=== PATIENT | male | born 1955 | race Caucasian/White ===

== ENCOUNTER 2021-02-24 14:03 | Outpatient (CLI) | payer OTHER | END 2021-02-24 14:04 | disposition home or self-care (01) | LOC: CSHULT 14:03 | PROVIDERS: ATTEND Nurse Practitioner Family | DX: N50.89 Other specified disorders of the male genital organs (principal); K40.90 Unilateral inguinal hernia, without obstruction or gangrene, not specified as recurrent | CPT/HCPCS: 76857 ==